=== PATIENT | male | born 1955 ===

== ENCOUNTER 2018-03-20 07:55 | Day surgery (SDC) | payer OTHER ==
[~2018-03-20] VITALS: Ht 182.9 cm; Wt 114.9 kg
[2018-03-20] MEDS ORDERED: RANI150EL (08:13)
[2018-03-20] MEDS ORDERED: DHEA (08:14)
--- NOTE | 2018-03-20 08:17 | NUR ---
03/20/18 0817 Asha Stinson ONE MISSED IV RH ONE GOOD RAC BY LORIN RIGGINS
--- NOTE | 2018-03-20 10:43 | NUR ---
03/20/18 1043 Isabel Wilkins CASE WENT LONG WITH 750 MG OF PROPOFOL.
== END 2018-03-20 11:09 | disposition home or self-care (01) ==
LOC: ORSCSDS 07:55
PROVIDERS: Internal Medicine Gastroenterology
PROC: 0DBK8ZX Excision of Ascending Colon, Via Natural or Artificial Opening Endoscopic, Diagnostic (ICD-10-PCS; principal; 2018-03-20 09:30)
PROC: 0DBB8ZX Excision of Ileum, Via Natural or Artificial Opening Endoscopic, Diagnostic (ICD-10-PCS; principal; 2018-03-20 09:30)
PROC: 0DBM8ZX Excision of Descending Colon, Via Natural or Artificial Opening Endoscopic, Diagnostic (ICD-10-PCS; principal; 2018-03-20 09:30)
PROC: 0DBL8ZX Excision of Transverse Colon, Via Natural or Artificial Opening Endoscopic, Diagnostic (ICD-10-PCS; principal; 2018-03-20 09:30)
DX: Z12.11 Encounter for screening for malignant neoplasm of colon (principal); K52.9 Noninfective gastroenteritis and colitis, unspecified; D12.2 Benign neoplasm of ascending colon; D12.3 Benign neoplasm of transverse colon; K63.5 Polyp of colon; Z79.899 Other long term (current) drug therapy
CPT/HCPCS: 88305; J7120

== ENCOUNTER 2023-10-23 10:00 | Inpatient (IN) | payer MEDICARE ==
[~2023-10-23] VITALS: Ht 182.9 cm; Wt 122.7 kg
[~2023-10-23 10:00] MED LIST: DHEA; RANI150EL
[2023-10-23] MEDS ORDERED: Losartan Potassium 50 MG Tab PO ONE ×2 (10:35→14:55)
[2023-10-23] MEDS ORDERED: LOSA25 PO (10:39)
[2023-10-23 10:46] LABS: BASOPHILS ABSOLUTE AUTO 0.04 K/mm3 (0.00-0.23); BASOPHILS PERCENT AUTO 0 % (0-2); EOSINOPHILS ABSOLUTE AUTO 0.12 K/mm3 (0.00-0.68); EOSINOPHILS PERCENT AUTO 1 % (0-6); Hematocrit 46.4 % (37.0-53.0); Hemoglobin 15.2 g/dL (13.5-17.5); IMMATURE GRAN ABSOLUTE AUTO 0.04 K/mm3 (0.00-0.10); IMMATURE GRAN PERCENT AUTO 0 % (0-1); LYMPHOCYTES ABSOLUTE AUTO 2.17 K/mm3 (0.84-5.20); LYMPHOCYTES PERCENT AUTO 19 % (21-46); MONOCYTES ABSOLUTE AUTO 1.05 K/mm3 (0.16-1.47); MONOCYTES PERCENT AUTO 9 % (4-13); Mean Corpuscular HGB 27.7 pg (26.0-34.0); Mean Corpuscular HGB Conc 32.8 g/dL (31.5-36.5); Mean Corpuscular Volume 85 fL (80-100); Mean Platelet Volume 9.5 fL (9.1-12.4); NEUTROPHILS ABSOLUTE AUTO 8.08 K/mm3 (1.96-9.15); NEUTROPHILS PERCENT AUTO 70 % (41-73); Platelet Count 291 K/mm3 (150-400); RDW Coefficient Variation 14.5 % (11.7-14.2); RDW Standard Deviation 44.9 fL (35.1-46.3); Red Blood Cell Count 5.48 M/mm3 (4.30-5.90)
[2023-10-23] MEDS ORDERED: Aspirin 81 MG Chew PO ONE (10:50)
[2023-10-23] MEDS ORDERED: Clopidogrel Bisulfate 75 MG Tab PO ONE (10:50)
[2023-10-23 11:11] LABS: Albumin, Blood 3.8 g/dL (3.4-5.0); Albumin/Globulin Ratio 0.9 (0.8-1.8); Bilirubin, Total 1.5 mg/dL (0.1-1.0); Bun/Creatinine Ratio 21.6 (12.0-20.0); Calcium, Blood 9.2 mg/dL (8.5-10.1); Creatinine, Blood 1.11 mg/dL (0.60-1.20); Globulin, Blood 4.1 g/dL (2.2-4.0); Magnesium, Blood 2.2 mg/dL (1.6-2.4); Potassium, Blood 3.4 mmol/L (3.5-5.5); Total Protein, Blood 7.9 g/dL (6.4-8.2)
[2023-10-23 11:41] LABS: Influenza A, PCR NEGATIVE (NEGATIVE); Influenza B, PCR NEGATIVE (NEGATIVE); Resp Syncytial Virus, PCR NEGATIVE (NEGATIVE); SARS-Cov-2 (COVID-19) PCR, MMC NEGATIVE (NEGATIVE)
[2023-10-23 11:57] LABS: Source, Urine Clean Catch
[2023-10-23 12:04] LABS: Appearance, Urine Clear (Clear); Bilirubin, Urine Neg (Neg); Blood, Urine 1+ (Neg); Color, Urine Yellow (P-Yellow); Glucose Qualitative, Urine Neg (Neg); Ketones, Urine Neg (Neg); Leukocyte Esterase, Urine Neg (Neg); Nitrite, Urine Neg (Neg); Protein, Urine 1+ (Neg); Specific Gravity, Urine 1.025 (1.003-1.022); Urobilinogen, Urine NORM (Normal)
[2023-10-23 12:15] LABS: Amorphous Light (0-Heavy); Bacteria Not Seen /hpf; Squamous Epithelial Cells Not Seen /hpf (Few); White Blood Cells, Urine Not Seen /hpf (0-5)
[2023-10-23] MEDS ORDERED: Acetaminophen 325 MG TABLET PO PRN (12:35)
[2023-10-23] MEDS ORDERED: Zolpidem Tartrate 5 MG Tab PO PRN (12:40)
[2023-10-23] MEDS ORDERED: Magnesium Hydroxide Conc 10 ML UDC PO PRN (12:40)
[2023-10-23] MEDS ORDERED: Bisacodyl 10 MG Supp PR PRN (12:40)
[2023-10-23] MEDS ORDERED: Ondansetron 4 MG TAB PO PRN (12:40)
[2023-10-23] MEDS ORDERED: HydrALAZINE HCl 20 MG / ML 1ML Vial IV PRN (14:35)
[2023-10-23 14:38] VITALS: BP 198/102
[2023-10-23 15:45] VITALS: BP 199/86
--- NOTE | 2023-10-23 18:19 | NUR ---
SHIFT SUMMARY 1400 RECEIVED PT TO 362 VIA W/C FROM ER. PT ABLE TO TX SELF TO BED. PT ADMITTED FOR STROKE; NO OBSERVED DEFICITS APART FROM SHORT TERM MEMORY LOSS. CT AND MRI COMPLETED PRIOR TO ADMIT TO UNIT; SEE RESULTS ON CHART. ECHO DONE IN AFTER ADMISSION. THERAPY HERE JUST PRIOR TO PUNCH MACHINE OPERATOR TO PROVIDE BED EVAL D/T HTN. DR RAMIREZ CALLED TO REPORT MRI NEGATIVE. PT'S MEMORY LOSS POSSIBLY R/T HYPERTENSIVE URGENCY. ADDITIONAL BP MEDS ORDERED AND GIVEN PER EMAR. PT'S TO WITH PT AND REMAINED TO ASSIST WITH ACCURATE INFORMATION PT UNABLE TO REMEMBER ANYTHING. PT'S NOW GONE HOME. PT REQUESTING TO BE DNR, AGREEABLE. NO C/O. DENIES FURTHER NEEDS. CALL LT IN REACH.
[2023-10-23 19:11] VITALS: BP 179/102
[2023-10-23] MEDS ORDERED: Famotidine 20 MG Tab PO SCH (21:00)
[2023-10-23] MEDS ORDERED: Lactobacil 2-S.Thermo-Bifido 1 1 Cap PO SCH (21:00)
[2023-10-24] VITALS (7 sets, daily range): BP systolic 121–188; BP diastolic 67–103
[2023-10-24 05:11] LABS: BASOPHILS ABSOLUTE AUTO 0.04 K/mm3 (0.00-0.23); BASOPHILS PERCENT AUTO 0 % (0-2); EOSINOPHILS ABSOLUTE AUTO 0.18 K/mm3 (0.00-0.68); EOSINOPHILS PERCENT AUTO 2 % (0-6); Hematocrit 42.3 % (37.0-53.0); Hemoglobin 13.7 g/dL (13.5-17.5); IMMATURE GRAN ABSOLUTE AUTO 0.02 K/mm3 (0.00-0.10); IMMATURE GRAN PERCENT AUTO 0 % (0-1); LYMPHOCYTES PERCENT AUTO 27 % (21-46); MONOCYTES ABSOLUTE AUTO 1.14 K/mm3 (0.16-1.47); MONOCYTES PERCENT AUTO 12 % (4-13); Mean Corpuscular HGB 27.5 pg (26.0-34.0); Mean Corpuscular HGB Conc 32.4 g/dL (31.5-36.5); Mean Corpuscular Volume 85 fL (80-100); Mean Platelet Volume 9.4 fL (9.1-12.4); NEUTROPHILS PERCENT AUTO 58 % (41-73); Platelet Count 262 K/mm3 (150-400); RDW Coefficient Variation 14.4 % (11.7-14.2); RDW Standard Deviation 44.3 fL (35.1-46.3); Red Blood Cell Count 4.98 M/mm3 (4.30-5.90); White Blood Cell Count 9.48 K/mm3 (4.00-11.30)
--- NOTE | 2023-10-24 05:17 | NUR ---
SHIFT SUMMARY PT IS A&OX3, KNOWS SELF, PERSON, PLACE, PRESIDENT. BUT WILL ASK WHY HE IS HERE MULTIPLE TIMES WHILE THIS STAFF IS IN ROOM. AIRAM IS HTN, 179/102, SR-SB 50-60'S (PER TELEMETRY), AFEBRILE, ON RA. DENIES PAIN. NO NEUROLOGICAL CHANGES THIS SHIFT. EQUAL STRENGTHS IN ALL EXTREMETIES. PT IS A SBA IN ROOM/BR, VOIDING IN TOILET, NO BM THIS SHIFT. BED IN LOWEST POSITION, CALL LIGHT WITHIN REACH. BED ALARM SET FOR PT'S SAFETY. PT DOES NOT USE HIS CALL LIGHT.
[2023-10-24 05:53] LABS: Alanine Aminotransfer (ALT/SGP 37 U/L (12-78); Albumin, Blood 3.3 g/dL (3.4-5.0); Albumin/Globulin Ratio 0.9 (0.8-1.8); Alk Phos 69 U/L (50-136); Anion Gap 11 mmol/L (3-11); Aspartate Aminotrans (AST/SGOT 25 U/L (12-37); Bilirubin, Total 1.4 mg/dL (0.1-1.0); Blood Urea Nitrogen 18 mg/dL (8-24); Bun/Creatinine Ratio 16.2 (12.0-20.0); CHOL/HDL RATIO 4.7; CO2, Blood 27 mmol/L (21-32); Chloride, Blood 106 mmol/L (98-108); Cholesterol 201 mg/dL (50-200); Creatinine, Blood 1.11 mg/dL (0.60-1.20); Globulin, Blood 3.5 g/dL (2.2-4.0); Glomerular Filtration Rate 73 (60-); Glucose, Blood 109 mg/dL (70-99); HDL Cholesterol 43 mg/dL (>39); Low Density Lipoprotein Chol 128 mg/dL (0-110); Potassium, Blood 3.7 mmol/L (3.5-5.5); Sodium, Blood 140 mmol/L (136-145); Total Protein, Blood 6.8 g/dL (6.4-8.2); Triglycerides 148 mg/dL (30-160); Very Low Density Lipoprot Chol 29 mg/dL (6-32)
[2023-10-24 06:10] LABS: Calcium, Blood 8.7 mg/dL (8.5-10.1)
[2023-10-24] MEDS ORDERED: HydrALAZINE HCl 20 MG / ML 1ML Vial IV PRN (08:10)
[2023-10-24] MEDS ORDERED: Losartan Potassium 50 MG Tab PO SCH ×2 (09:00)
[2023-10-24] MEDS ORDERED: Enoxaparin 40 MG/0.4 ML SYR SC SCH (09:00)
[2023-10-24] MEDS ORDERED: Atorvastatin 40 MG Tab PO SCH (09:00)
[2023-10-24] MEDS ORDERED: Aspirin 81 MG Chew PO SCH (09:00)
[2023-10-24] MEDS ORDERED: ALBU90OI INH (16:29)
--- NOTE | 2023-10-24 18:03 | NUR ---
SHIFT SUMMARY PT AWAKE DURING SHIFT REPORT, NEEDING TO GET UP TO BTHRM. PT ASSISTED WITH LINES AND BED ALARM; SBA ONLY. PT ABLE TO AMBULATE IN RM; STILL NO DEFICITS NOTED, EXCEPT MEMORY LOSS. ABLE TO WORK WITH THERAPY TODAY AND CLEARED TO BE INDEPENDENT. PT IS PLEASANT AND DIRECTABLE, BUT REMAINS VERY FORGETFUL. PT STILL DOES NOT REMEMBER HOW HE GOT HERE OR WHY HE WAS BROUGHT IN. DR RAMIREZ IN TO SEE PT AND , DISCUSSING PLAN OF CARE. BP MEDS ADJUSTED AND EVENTUALLY HAVING GOOD EFFECT; SEE CHART. PT'S NOW GOING HOME TO CARE FOR PT'S ANIMALS. CALL LT IN REACH.
[2023-10-25 03:06] VITALS: BP 151/89
[2023-10-25 04:53] LABS: BASOPHILS ABSOLUTE AUTO 0.05 K/mm3 (0.00-0.23); BASOPHILS PERCENT AUTO 1 % (0-2); EOSINOPHILS ABSOLUTE AUTO 0.12 K/mm3 (0.00-0.68); EOSINOPHILS PERCENT AUTO 1 % (0-6); Hematocrit 43.3 % (37.0-53.0); IMMATURE GRAN ABSOLUTE AUTO 0.03 K/mm3 (0.00-0.10); IMMATURE GRAN PERCENT AUTO 0 % (0-1); LYMPHOCYTES ABSOLUTE AUTO 2.42 K/mm3 (0.84-5.20); LYMPHOCYTES PERCENT AUTO 25 % (21-46); MONOCYTES ABSOLUTE AUTO 1.28 K/mm3 (0.16-1.47); MONOCYTES PERCENT AUTO 13 % (4-13); Mean Corpuscular HGB 27.1 pg (26.0-34.0); Mean Corpuscular HGB Conc 32.3 g/dL (31.5-36.5); Mean Corpuscular Volume 84 fL (80-100); Mean Platelet Volume 9.5 fL (9.1-12.4); NEUTROPHILS ABSOLUTE AUTO 5.97 K/mm3 (1.96-9.15); NEUTROPHILS PERCENT AUTO 61 % (41-73); Platelet Count 275 K/mm3 (150-400); RDW Coefficient Variation 14.5 % (11.7-14.2); RDW Standard Deviation 43.8 fL (35.1-46.3); Red Blood Cell Count 5.17 M/mm3 (4.30-5.90); White Blood Cell Count 9.87 K/mm3 (4.00-11.30)
[2023-10-25 05:08] LABS: Albumin, Blood 3.2 g/dL (3.4-5.0); Albumin/Globulin Ratio 0.9 (0.8-1.8); Bilirubin, Total 1.5 mg/dL (0.1-1.0); Calcium, Blood 8.6 mg/dL (8.5-10.1); Creatinine, Blood 0.94 mg/dL (0.60-1.20); Globulin, Blood 3.5 g/dL (2.2-4.0); Phosphorus, Blood 3.6 mg/dL (2.5-4.9); Potassium, Blood 3.5 mmol/L (3.5-5.5); Total Protein, Blood 6.7 g/dL (6.4-8.2)
[2023-10-25 07:15] VITALS: BP 169/98
--- NOTE | 2023-10-25 07:33 | NUR ---
SHIFT SUMMARY PT IS A&OX3, KNOWS SELF, PERSON, PLACE, PRESIDENT. BUT WILL ASK WHY HE IS HERE MULTIPLE TIMES WHILE THIS STAFF IS IN ROOM. AIRAM IS HTN, 184/88, PRN 20 MG IV HYDRALAZINE GIVEN WITH GOOD RESULTS. DENIES PAIN. NO NEUROLOGICAL CHANGES THIS SHIFT. EQUAL STRENGTHS IN ALL EXTREMETIES. PT IS INDEPENDENT IN ROOM/BR, VOIDING IN TOILET, NO BM THIS SHIFT. BED IN LOWEST POSITION, CALL LIGHT WITHIN REACH. FREQUENT ROUNDING DONE.
[2023-10-25] MEDS ORDERED: Metoprolol Succinate 25 MG TABCR PO SCH (09:00)
[2023-10-25 12:46] VITALS: BP 158/95
[2023-10-25 15:24] VITALS: BP 170/90
[2023-10-25] MEDS ORDERED: HydrALAZINE HCl 20 MG / ML 1ML Vial IV PRN (16:00)
[2023-10-25] MEDS ORDERED: Metoprolol Tartrate 25 MG Tab PO STA (16:01)
[2023-10-25] MEDS ORDERED: LOSA50 PO (16:52)
[2023-10-25] MEDS ORDERED: METO50 PO (16:53)
[2023-10-25] MEDS ORDERED: HYDRA25 PO (16:53)
--- NOTE | 2023-10-25 17:59 | NUR ---
PATIENT DD'D HOME WITH . DC INSTRUCTIONS AND EDUCATION DISCUSSED WITH PATIENT AND HIS AND COPY PROVIDED. PRESCRIPTION ALREADY PICKED UP FROM PHARMACY. PATIENT DENIES ANY FURTHER QUESTIONS OR CONCERNS.
[2023-10-26] MEDS ORDERED: Metoprolol Succinate 50 MG TABCR PO SCH (09:00)
== END 2023-10-25 17:55 | disposition home or self-care (01) | DRG 78 ==
LOC: ER 10:00 → MEDS 12:35
PROVIDERS: Emergency Medicine; Physician Assistant; ADMIT Hospitalist
DX: I67.4 Hypertensive encephalopathy (principal); G45.9 Transient cerebral ischemic attack, unspecified; I16.1 Hypertensive emergency; I50.32 Chronic diastolic (congestive) heart failure; I50.30 Unspecified diastolic (congestive) heart failure; I11.0 Hypertensive heart disease with heart failure; F17.290 Nicotine dependence, other tobacco product, uncomplicated
CPT/HCPCS: 0241U; 36415; 70450; 70551; 71045; 80053; 80061; 81001; 83036; 83735; 84100; 85025; 92507; 92523; 92610; 93005; 93010; 93306; 94760; 94762; 97129; 97161; 97164; 97165; 99285-25; A9270; J0360; J1650

== ENCOUNTER 2023-11-22 01:49 | Inpatient (IN) | payer MEDICARE ==
[~2023-11-22] VITALS: Ht 182.9 cm; Wt 113.3 kg
[~2023-11-22 01:49] MED LIST changes: +ALBU90OI INH; +HYDRA25 PO; +LOSA25 PO; +LOSA50 PO; +METO50 PO
[2023-11-22] MEDS ORDERED: NS 1,000 ML IV SCH (06:30)
[2023-11-22] MEDS ORDERED: Ketorolac Tromethamine 30mg Vial IV ONE (06:35)
[2023-11-22 06:53] LABS: BASOPHILS ABSOLUTE AUTO 0.05 K/mm3 (0.00-0.23); BASOPHILS PERCENT AUTO 0 % (0-2); EOSINOPHILS ABSOLUTE AUTO 0.02 K/mm3 (0.00-0.68); EOSINOPHILS PERCENT AUTO 0 % (0-6); Hematocrit 43.4 % (37.0-53.0); Hemoglobin 14.2 g/dL (13.5-17.5); IMMATURE GRAN ABSOLUTE AUTO 0.06 K/mm3 (0.00-0.10); IMMATURE GRAN PERCENT AUTO 0 % (0-1); LYMPHOCYTES ABSOLUTE AUTO 1.43 K/mm3 (0.84-5.20); LYMPHOCYTES PERCENT AUTO 9 % (21-46); MONOCYTES ABSOLUTE AUTO 1.25 K/mm3 (0.16-1.47); MONOCYTES PERCENT AUTO 8 % (4-13); Mean Corpuscular HGB 27.4 pg (26.0-34.0); Mean Corpuscular HGB Conc 32.7 g/dL (31.5-36.5); Mean Corpuscular Volume 84 fL (80-100); Mean Platelet Volume 9.2 fL (9.1-12.4); NEUTROPHILS ABSOLUTE AUTO 12.83 K/mm3 (1.96-9.15); NEUTROPHILS PERCENT AUTO 82 % (41-73); Platelet Count 331 K/mm3 (150-400); RDW Coefficient Variation 13.6 % (11.7-14.2); Red Blood Cell Count 5.18 M/mm3 (4.30-5.90); White Blood Cell Count 15.64 K/mm3 (4.00-11.30)
[2023-11-22 07:19] LABS: Albumin, Blood 4.1 g/dL (3.4-5.0); Albumin/Globulin Ratio 1.1 (0.8-1.8); Bilirubin, Total 1.1 mg/dL (0.1-1.0); Bun/Creatinine Ratio 10.4 (12.0-20.0); Calcium, Blood 9.8 mg/dL (8.5-10.1); Creatinine, Blood 1.25 mg/dL (0.60-1.20); Globulin, Blood 3.6 g/dL (2.2-4.0); Potassium, Blood 3.7 mmol/L (3.5-5.5); Total Protein, Blood 7.7 g/dL (6.4-8.2)
[2023-11-22 07:52] LABS: Source, Urine Clean Catch
[2023-11-22 07:54] LABS: Bilirubin, Urine Neg (Neg); Blood, Urine 5+ (Neg); Glucose Qualitative, Urine 1+ (Neg); Ketones, Urine 4+ (Neg); Leukocyte Esterase, Urine 1+ (Neg); Nitrite, Urine Pos (Neg); Protein, Urine 3+ (Neg); Urobilinogen, Urine NORM (Normal)
[2023-11-22 07:56] LABS: Appearance, Urine Hazy (Clear); Color, Urine Yellow (P-Yellow)
[2023-11-22 08:01] LABS: Amorphous Light (0-Heavy); Bacteria Mod /hpf; Calcium Oxalate Crystals Few /hpf; Mucus Light (0-Heavy); Red Blood Cells, Urine 25-50 /hpf (0-2); White Blood Cells, Urine 0-2 /hpf (0-5)
[2023-11-22 08:02] LABS: Squamous Epithelial Cells Rare /hpf (Few)
[2023-11-22] MEDS ORDERED: Ondansetron HCl 2 MG / ML 2ML Vial IV ONE (08:05)
[2023-11-22] MEDS ORDERED: FentaNYL Citrate 50 MCG/ML 2 ML Injection IV ONE (08:05)
[2023-11-22] MEDS ORDERED: CefTRIAXone Sodium 1,000 MG in NS 100 ML IV ONE (08:10)
[2023-11-22] MEDS ORDERED: Tamsulosin HCl 0.4 MG Cap PO ONE (08:25)
[2023-11-22] MEDS ORDERED: FLUO10 (09:37)
[2023-11-22] MEDS ORDERED: LORAZEPAM0.5 MG PO (09:38)
[2023-11-22] MEDS ORDERED: Prozac20 MG PO (09:38)
[2023-11-22] MEDS ORDERED: Metoprolol Tartrate 50 MG Tab PO ONE (09:55)
[2023-11-22] MEDS ORDERED: LORazepam 1 MG Tab PO ONE (10:00)
[2023-11-22] MEDS ORDERED: Polyethylene Glycol 3350 17 gm PO PRN (11:10)
[2023-11-22] MEDS ORDERED: Acetaminophen 500 MG Tab PO PRN (11:10)
[2023-11-22] MEDS ORDERED: Lactated Ringer's 1,000 ML IV SCH (11:10)
[2023-11-22] MEDS ORDERED: HydrALAZINE HCl 20 MG / ML 1ML Vial IV PRN (12:30)
[2023-11-22 12:50] VITALS: BP 154/77
[2023-11-22] MEDS ORDERED: ASPI81CH PO (12:56)
[2023-11-22 15:23] VITALS: BP 174/78
[2023-11-22] MEDS ORDERED: LORazepam 0.5 MG Tab PO PRN (15:45)
--- NOTE | 2023-11-22 17:23 | NUR ---
SHIFT SUMMARY PT A NEW ADMIT THIS SHIFT. AOX4, INDEPENDENT IN THE ROOM. USES THE URINAL ON OCCASSION. LR GOING AT 75 FOR ONE BAG. ANXIETY MEDS AVAILABLE PER THE EMAR PRN. UPDATED ON THE PLAN FOR THE PT, SEE THE H AND P. NO COMPLAINTS BY THE PT. HE REPOSITIONS HIMSELF INDEPENDENTLY IN BED. CALLS AND MAKES HIS NEEDS KNOWN. PAIN IS UNDER CONTROL WITH MEDS PER THE EMAR AT THIS TIME. CALL LIGHT WITHIN REACH, BED LOCKED AND IN THE LOWEST POSITION. WILL REPORT TO ONCOMING NURSE.
[2023-11-22 19:34] VITALS: BP 155/78
[2023-11-22] MEDS ORDERED: Metoprolol Tartrate 50 MG Tab PO SCH (21:00)
[2023-11-22] MEDS ORDERED: Lactobacil 2-S.Thermo-Bifido 1 1 Cap PO SCH (21:00)
[2023-11-22] MEDS ORDERED: Docusate Sodium/Senna 1 Tab PO SCH (21:00)
[2023-11-23 03:03] VITALS: BP 163/79
--- NOTE | 2023-11-23 03:41 | NUR ---
SHIFT SUMMARY 68 YR M ADMITTED ON 11/22/23. FULL CODE. NO ACUTE CHANGES THIS SHIFT. PT IS A&O X 4 AND IS INDEPENDANT IN THE ROOM. HE HAS NOT REPORTED THAT HE FEELS THOUGH HE HAS PASSED THE KIDNEY STONE. HE CALLS APPROPRIATELY BUT IS QUIET AND WITHDRAWN. BED IN LOW POSITION AND CALL LIGHT IN REACH. WILL CONTINUE TO MONITOR.
[2023-11-23 05:28] LABS: Hematocrit 40.5 % (37.0-53.0); Hemoglobin 13.1 g/dL (13.5-17.5); Mean Corpuscular HGB 27.4 pg (26.0-34.0); Mean Corpuscular HGB Conc 32.3 g/dL (31.5-36.5); Mean Corpuscular Volume 85 fL (80-100); Mean Platelet Volume 9.2 fL (9.1-12.4); Platelet Count 270 K/mm3 (150-400); RDW Coefficient Variation 13.8 % (11.7-14.2); RDW Standard Deviation 42.7 fL (35.1-46.3); Red Blood Cell Count 4.78 M/mm3 (4.30-5.90); White Blood Cell Count 11.01 K/mm3 (4.00-11.30)
[2023-11-23 06:09] LABS: Albumin, Blood 3.1 g/dL (3.4-5.0); Anion Gap 10 mmol/L (3-11); Blood Urea Nitrogen 14 mg/dL (8-24); Bun/Creatinine Ratio 8.5 (12.0-20.0); CO2, Blood 27 mmol/L (21-32); Chloride, Blood 108 mmol/L (98-108); Creatinine, Blood 1.64 mg/dL (0.60-1.20); Glomerular Filtration Rate 45 (60-); Glucose, Blood 119 mg/dL (70-99); Phosphorus, Blood 3.7 mg/dL (2.5-4.9); Potassium, Blood 3.9 mmol/L (3.5-5.5); Sodium, Blood 141 mmol/L (136-145)
[2023-11-23 07:37] VITALS: BP 180/87
[2023-11-23] MEDS ORDERED: FLUoxetine HCL 20 MG CAP PO SCH (09:00)
[2023-11-23] MEDS ORDERED: Losartan Potassium 50 MG Tab PO SCH (09:00)
[2023-11-23] MEDS ORDERED: CefTRIAXone Sodium 1,000 MG in NS 100 ML IV SCH (09:00)
[2023-11-23] MEDS ORDERED: Empagliflozin 10 MG TAB PO SCH (14:00)
[2023-11-23 15:55] VITALS: BP 187/95
[2023-11-23 16:37] VITALS: BP 168/84
--- NOTE | 2023-11-23 17:47 | NUR ---
SHIFT NOTE: PT A/OX4 FLAT AND WITHDRAWAL WITH INT CONFUSION. HE USES CALL LIGHT TO MAKE HIS NEEDS KNOWN. AT BEDSIDE T/O SHIFT. HIS SBP HAS BEEN ELEVATED WHICH WAS MEDICATED PER MAR. PT'S CONTINUES TO ASK FOR ATIVAN FOR HYPERTENTION. PT AND PT'S EDUCATED ON USE OF ATIVAN. HE IS ON RA WITH NO REPORTS OF SOB. HE IS CONT WITH URGENCY, DENIES DIFFICUTLY WITH VOIDING. PT EDUCATED ON NEED TO VOID IN URINAL SO STAFF CAN STRAIN IT. HE REPORTS ABD PAIN STATING IT FEELS LIKE HE IS CONSTIPATED. MIRALAX AND PRUNE JUICE GIVEN. CALL LIGHT IN REACH, WILL CONTINUE TO MONITOR AND REPORT TO ONCOMING RN
[2023-11-23 20:47] VITALS: BP 169/88
[2023-11-24] VITALS (7 sets, daily range): BP systolic 143–182; BP diastolic 77–91
--- NOTE | 2023-11-24 04:45 | NUR ---
PATIENT IS A 68 YR OLD MALE ADMITTED ON 11/22/23 AND IS A FULL CODE. PT WAS ADMITTED FOR RIGHT NEPHROLITHIASIS. PT HAS A FLAT AFFECT BUT RESPONDS APPROPRIATLY TO QUESTIONS. PT HAS NOT YES PASSED KIDNEY STONE AND HAS BEEN CONSTIPATED MOST OF THE SHIFT. PT FINALLY WAS ABLE TO HAVE A SMALL BM AND PASS SOME GAS. PT FEELS RELIEVED WITH THIS AND HAS BEEN RESTING COMFORTABLY. PT IS A&O X4 WITH CALL LIGHT WITHIN REACH. PT IS INDEPENDENT IN ROOM. FOR MORE INFORMATION CHECK THE EMAR AND PAST MEDICAL HISTORY FOR PT.
[2023-11-24 05:49] LABS: BASOPHILS ABSOLUTE AUTO 0.03 K/mm3 (0.00-0.23); BASOPHILS PERCENT AUTO 0 % (0-2); EOSINOPHILS ABSOLUTE AUTO 0.03 K/mm3 (0.00-0.68); EOSINOPHILS PERCENT AUTO 0 % (0-6); Hematocrit 39.6 % (37.0-53.0); Hemoglobin 12.9 g/dL (13.5-17.5); IMMATURE GRAN ABSOLUTE AUTO 0.03 K/mm3 (0.00-0.10); IMMATURE GRAN PERCENT AUTO 0 % (0-1); LYMPHOCYTES ABSOLUTE AUTO 1.32 K/mm3 (0.84-5.20); LYMPHOCYTES PERCENT AUTO 12 % (21-46); MONOCYTES ABSOLUTE AUTO 1.29 K/mm3 (0.16-1.47); MONOCYTES PERCENT AUTO 12 % (4-13); Mean Corpuscular HGB 27.2 pg (26.0-34.0); Mean Corpuscular HGB Conc 32.6 g/dL (31.5-36.5); Mean Corpuscular Volume 84 fL (80-100); Mean Platelet Volume 9.4 fL (9.1-12.4); NEUTROPHILS ABSOLUTE AUTO 8.14 K/mm3 (1.96-9.15); NEUTROPHILS PERCENT AUTO 75 % (41-73); Platelet Count 259 K/mm3 (150-400); RDW Coefficient Variation 13.9 % (11.7-14.2); RDW Standard Deviation 42.8 fL (35.1-46.3); Red Blood Cell Count 4.74 M/mm3 (4.30-5.90); White Blood Cell Count 10.84 K/mm3 (4.00-11.30)
[2023-11-24 06:12] LABS: Albumin, Blood 3.1 g/dL (3.4-5.0); Anion Gap 14 mmol/L (3-11); Blood Urea Nitrogen 12 mg/dL (8-24); Bun/Creatinine Ratio 7.2 (12.0-20.0); CO2, Blood 24 mmol/L (21-32); Calcium, Blood 8.9 mg/dL (8.5-10.1); Chloride, Blood 107 mmol/L (98-108); Creatinine, Blood 1.66 mg/dL (0.60-1.20); Glomerular Filtration Rate 45 (60-); Glucose, Blood 114 mg/dL (70-99); Phosphorus, Blood 3.6 mg/dL (2.5-4.9); Potassium, Blood 3.6 mmol/L (3.5-5.5); Sodium, Blood 141 mmol/L (136-145)
[2023-11-24] MEDS ORDERED: Lactated Ringer's 1,000 ML IV ONE (09:00)
[2023-11-24] MEDS ORDERED: Tamsulosin HCl 0.4 MG Cap PO SCH (13:00)
[2023-11-24 15:14] LABS: Bun/Creatinine Ratio 9.6 (12.0-20.0); Creatinine, Blood 1.67 mg/dL (0.60-1.20); Potassium, Blood 3.9 mmol/L (3.5-5.5)
[2023-11-24] MEDS ORDERED: HydrALAZINE HCl 10 MG Tab PO PRN (16:10)
[2023-11-24] MEDS ORDERED: HydrALAZINE HCl 20 MG / ML 1ML Vial IV PRN (16:15)
[2023-11-24] MEDS ORDERED: AmLODIPine Besylate 5 MG Tab PO SCH (17:00)
--- NOTE | 2023-11-24 19:05 | NUR ---
SHIFT SUMMARY- PT ALERT, ORIENTED AND INDEPENDENT IN THE ROOM. PT BP HAS BEEN ELEVATED ALL SHIFT. SPOKE TO DR ELLER AND DISCHARGE WAS DELAYED TO FIND A PO BP MED THAT WILL GIVE THE PT BETTER CONTROL OVER HIS BP. PLAN IS FOR POSSIBLE BP TOMORROW IF BP IS BETTER CONTROLED. IV HYDRALIZINE WAS GIVEN THIS EVENING AND THE PT SBP ON FOLLOW UP WAS 147.
[2023-11-25] MEDS ORDERED: TraMADol HCl 50 MG Tab PO PRN (00:55)
--- NOTE | 2023-11-25 03:29 | NUR ---
CALLED HOSPITALIST PT REPORT 8 OUT OF 10 PAIN. PT STATED THAT PO TYLENOL AND PO TRAMADOL ARE NOT EFFECTIVE. HOSPITALIST STATES HE WILL ENTER NEW ORDERS.
[2023-11-25] MEDS ORDERED: Ondansetron HCl 2 MG / ML 2ML Vial IV PRN (03:35)
--- NOTE | 2023-11-25 03:39 | NUR ---
SHIFT SUMMARY ADMITTED FOR R. NEPHROLITHIASIS/JESSICA. FULL CODE. PLAN IS FOR MANAGING BLOOD PRESSURES AND PAIN CONTROL. HOPING FOR THE STONE TO PASS ON IT'S OWN. THIS SHIFT PT COMPLAINS OF UNCONTROLLED PAIN AND NEW NAUSEA. NEW ORDERS ENTERED IN EMAR. HE IS A&O X4, FORGETFUL. INDEPENDENT. ON RA. REGULAR DIET.
[2023-11-25] MEDS ORDERED: OxyCODONE HCL 5 MG TAB PO ONE (04:00)
[2023-11-25] MEDS ORDERED: OxyCODONE HCL 5 MG TAB PO PRN (04:00)
[2023-11-25 04:03] VITALS: BP 172/73
[2023-11-25 06:01] LABS: Creatinine, Blood 1.46 mg/dL (0.60-1.20); Potassium, Blood 3.6 mmol/L (3.5-5.5)
[2023-11-25 07:35] VITALS: BP 173/85
[2023-11-25 09:19] VITALS: BP 164/83
[2023-11-25] MEDS ORDERED: ACET500 PO (10:36)
[2023-11-25] MEDS ORDERED: DOCUZEN 8.6-501 EACH PO (10:37)
[2023-11-25] MEDS ORDERED: AMLO5 PO (10:37)
[2023-11-25] MEDS ORDERED: JARDIANCE10 MG PO (10:38)
[2023-11-25] MEDS ORDERED: OXYC5 PO (10:38)
[2023-11-25] MEDS ORDERED: TAMS.4ER PO (10:39)
[2023-11-25] MEDS ORDERED: MIRALAX17 GM PO (10:39)
--- NOTE | 2023-11-25 11:16 | NUR ---
DISCHARGE- PT DISCHARGED HOME WITH SPOUSE AT BEDSIDE, DISCHARGE INSTRUCTION DISCUSSED WITH PT AND SPOUSE, EMPHASIZED IMPORTANCE OF TAKING MEDICATIONS PRESCRIBED AND DISCONTINUE MEDS LISTED. PT VERBALIZED UNDERSTANDING, NO QUESTIONS OR CONCERNS AT TIME OF DISCHARGE, PT DECLINED WHEEL CHAIR ASSISTANCE.
== END 2023-11-25 11:15 | disposition home or self-care (01) | DRG 694 ==
LOC: ER 01:49 → ERHOLD 01:50 → MEDS 12:49
PROVIDERS: Emergency Medicine; Family Medicine; ADMIT Internal Medicine
DX: N13.2 Hydronephrosis with renal and ureteral calculous obstruction (principal); I50.30 Unspecified diastolic (congestive) heart failure; N17.9 Acute kidney failure, unspecified; I11.0 Hypertensive heart disease with heart failure; R82.81 Pyuria; F32.A Depression, unspecified; Z79.899 Other long term (current) drug therapy; Z79.51 Long term (current) use of inhaled steroids; Z87.891 Personal history of nicotine dependence; Z53.21 Procedure and treatment not carried out due to patient leaving prior to being seen by health care provider
CPT/HCPCS: 36415; 74176; 76705; 76857; 80048; 80053; 80069; 81001; 84443; 85025; 85027; 87086; 96361; 96365; 96366; 96375; 97129; 97165; 99285-25; A9270; G0378; J0360; J0696; J1885; J2405; J3010; J7030; J7120